=== PATIENT | female | born 1955 | race Caucasian/White ===

== ENCOUNTER 2017-08-14 16:53 | Emergency (ER) | payer OTHER | END 2017-08-14 17:15 | disposition home or self-care (01) | LOC: E/R 16:53 | DX: L29.9 Pruritus, unspecified (principal); I10 Essential (primary) hypertension | CPT/HCPCS: 99283; Z7502 ==

== ENCOUNTER 2018-01-01 15:25 | Emergency (ER) | payer OTHER ==
[2018-01-01] MEDS: KETOROLAC 30 MG INJ IM (17:48)
== END 2018-01-01 17:56 | disposition home or self-care (01) ==
LOC: FTE 15:25
DX: M54.12 Radiculopathy, cervical region (principal)
CPT/HCPCS: 73030; 96372; 99284-25

== ENCOUNTER 2018-02-26 10:26 | Emergency (ER) | payer OTHER | END 2018-02-26 11:59 | disposition home or self-care (01) | LOC: FTE 10:26 | DX: M54.12 Radiculopathy, cervical region (principal); I10 Essential (primary) hypertension | CPT/HCPCS: 99283; Z7502 ==

== ENCOUNTER 2018-04-01 12:20 | Emergency (ER) | payer OTHER | END 2018-04-01 13:42 | disposition home or self-care (01) | LOC: FTE 12:20 | DX: H60.92 Unspecified otitis externa, left ear (principal); I10 Essential (primary) hypertension | CPT/HCPCS: 99283; Z7502 ==

== ENCOUNTER 2018-07-28 15:07 | Emergency (ER) | payer OTHER ==
[2018-07-28] MEDS: KETOROLAC 30 MG INJ IM (16:46)
== END 2018-07-28 18:56 | disposition home or self-care (01) ==
LOC: FTE 15:07
DX: M54.12 Radiculopathy, cervical region (principal); M25.512 Pain in left shoulder; I10 Essential (primary) hypertension
CPT/HCPCS: 72040; 73030; 96372; 99284-25

== ENCOUNTER 2019-02-13 10:45 | Inpatient (IN) | payer OTHER ==
[2019-02-13] MEDS ORDERED: NEOSTIGMINE 3 MG/3 ML SYRINGE (13:10)
[2019-02-13] MEDS ORDERED: ROCURONIUM 50 MG INJ ×2 (13:10→14:32)
[2019-02-13] MEDS ORDERED: SUCCINYLCHOLINE CHLORIDE 100 MG/5 ML SYG IV (13:10)
[2019-02-13] MEDS ORDERED: MEPERIDINE 100 MG INJ (13:10)
[2019-02-13] MEDS ORDERED: PROPOFOL 20 ML (13:10)
[2019-02-13] MEDS ORDERED: GLYCOPYRROLATE 0.4 MG INJ (13:10)
[2019-02-13] MEDS ORDERED: LIDOCAINE 2% (SDV) 5 ML INJ (13:10)
[2019-02-13] MEDS ORDERED: LACTATED RINGER'S 1,000 ML IV (13:30)
[2019-02-13] MEDS ORDERED: SEVOFLURANE 15 MIN (13:30)
[2019-02-13] MEDS ORDERED: DEXAMETHASONE 4 MG/ML 5 ML INJ (13:51)
[2019-02-13] MEDS ORDERED: LABETALOL HCL 20MG INJ (13:59)
[2019-02-13] MEDS ORDERED: CEFAZOLIN 1 GM INJ (14:09)
[2019-02-13] MEDS: POLYMYXIN/BACITRACIN 1L IRRIG (14:22)
[2019-02-13] MEDS: GELATIN SIZE 100 SPONGE ×2 (14:22→14:23)
[2019-02-13] MEDS: THROMBIN 5000 UNIT (RECOTHROM) VIAL ×2 (14:22)
[2019-02-13] MEDS: LIDOCAINE 1%/EPI (1:100,000) (MDV) 20 ML (14:22)
[2019-02-13] MEDS ORDERED: ONDANSETRON 4 MG INJ (14:48)
[2019-02-13] MEDS ORDERED: LIDOCAINE 1%/EPI (1:100,000) (MDV) 20 ML (14:51)
[2019-02-13] MEDS ORDERED: ONDANSETRON 4 MG INJ IV ×2 (15:30→16:00)
[2019-02-13] MEDS ORDERED: DIPHENHYDRAMINE 50 MG INJ IV (16:00)
[2019-02-13] MEDS ORDERED: HYDROmorphONE 0.5 MG/0.5 ML SYG IV ×2 (16:00)
[2019-02-13] MEDS ORDERED: METOCLOPRAMIDE 10 MG INJ IV (16:00)
[2019-02-13] MEDS ORDERED: FENTAnyl 50 MCG/ML VIAL IV ×3 (16:00)
[2019-02-13] MEDS ORDERED: LABETALOL HCL 20MG INJ IV (16:00)
[2019-02-13] MEDS ORDERED: MIDAZOLAM 1 MG/ML 2 ML INJ IV (16:00)
[2019-02-13] MEDS ORDERED: hydrALAzine 20 MG INJ IV (16:00)
[2019-02-13] MEDS ORDERED: MEPERIDINE 25 MG INJ IV (16:00)
[2019-02-13] MEDS ORDERED: EPHEDrine 25 MG/5 ML SYG IV (16:00)
[2019-02-13] MEDS: DEXTROSE 5%-LR 1,000 ML IV (17:11)
[2019-02-13] MEDS: HYDROmorphONE 0.5 MG/0.5 ML SYG IV (17:16)
[2019-02-13] MEDS: DEXAMETHASONE 4 MG/ML 1 ML INJ IV (17:24)
[2019-02-13] MEDS: morphine 2 MG INJ IV (19:52)
[2019-02-13] MEDS: CEFAZOLIN 1 GM/50 ML (PMX) 50 ML IVPB (22:10)
[2019-02-13] MEDS: niCARdipine 50 MG in SOD CHLORIDE 0.9% 480 ML IV (23:11)
[2019-02-14] MEDS: DEXAMETHASONE 4 MG/ML 1 ML INJ IV ×4 (00:23→18:41)
[2019-02-14] MEDS: morphine 2 MG INJ IV ×4 (00:32→18:41)
[2019-02-14] MEDS: DEXTROSE 5%-LR 1,000 ML IV ×3 (04:43→23:28)
[2019-02-14] MEDS: CEFAZOLIN 1 GM/50 ML (PMX) 50 ML IVPB ×3 (05:56→22:11)
[2019-02-14] MEDS: AL HYDROX/MG HYDROX/SIMETH 30 ML CUP PO (20:54)
[2019-02-15] MEDS: DEXAMETHASONE 4 MG/ML 1 ML INJ IV ×4 (01:26→17:54)
[2019-02-15] MEDS: morphine 2 MG INJ IV ×3 (01:34→20:20)
[2019-02-15] MEDS: PANTOPRAZOLE (EC) 40 MG TAB PO (05:45)
[2019-02-15] MEDS: DEXTROSE 5%-LR 1,000 ML IV (05:53)
[2019-02-15] MEDS: HYDROCHLOROTHIAZIDE 12.5 MG CAP PO (09:12)
[2019-02-15] MEDS: LISINOPRIL 10 MG TAB PO (09:12)
[2019-02-15] MEDS: LORAZEPAM 2 MG INJ IV (10:00)
[2019-02-15] MEDS: hydrALAzine 20 MG INJ IV (11:56)
[2019-02-16] MEDS: PANTOPRAZOLE (EC) 40 MG TAB PO (06:00)
[2019-02-16] MEDS: HYDROCHLOROTHIAZIDE 12.5 MG CAP PO (08:26)
[2019-02-16] MEDS: LISINOPRIL 10 MG TAB PO (08:26)
[2019-02-16] MEDS: morphine 2 MG INJ IV (08:27)
== END 2019-02-16 17:30 | disposition home or self-care (01) | DRG 472 ==
LOC: REC 10:45 → MS1 02-14 23:08 → ICU 15:40
PROC: 0RG20A0 Fusion of 2 or more Cervical Vertebral Joints with Interbody Fusion Device, Anterior Approach, Anterior Column, Open Approach (ICD-10-PCS; principal; 2019-02-13 13:00)
PROC: 0RT30ZZ Resection of Cervical Vertebral Disc, Open Approach (ICD-10-PCS; 2019-02-13 13:00)
PROC: 00NW0ZZ Release Cervical Spinal Cord, Open Approach (ICD-10-PCS; 2019-02-13 13:00)
DX: M47.12 Other spondylosis with myelopathy, cervical region (principal); M50.021 Cervical disc disorder at C4-C5 level with myelopathy; M47.22 Other spondylosis with radiculopathy, cervical region; M50.121 Cervical disc disorder at C4-C5 level with radiculopathy; M48.02 Spinal stenosis, cervical region
CPT/HCPCS: 72040; 72156; 80048; 85025; 87081; 97116; 97164